=== PATIENT | female | born 1955 | race Caucasian/White ===

== ENCOUNTER → 2024-11-25 | Outpatient (CLI) | payer MEDICARE, SELFPAY ==
[2024-11-25 16:01] LABS: Absolute Lymphocyte Count 1.89 X10^3/uL (0.83-4.51); Absolute Neutrophil Count 2.5 X10^3/uL (2.0-7.7); Basophil# 0.07 X10^3/uL; Basophil% 1.4 % (0-1); Eosinophil# 0.19 X10^3/uL; Eosinophils% 3.7 % (0-5); Hematocrit 42.5 % (37-47); Hemoglobin 13.1 g/dL (12.0-15.0); Lymphocyte # 1.89 X10^3/ul (0.83-4.51); Lymphocyte % 36.7 % (19-41); Mean Corp Hgb Conc 30.8 g/dL (32-36); Mean Corpuscular Hgb 29.2 pg (27.0-32.0); Mean Corpuscular Volume 94.7 fL (81-99); Mean Platelet Vol. 9.3 fl (6.2-12.0); Monocyte# 0.54 X10^3/uL; Monocyte% 10.5 % (0-10); NRBC Flagged by Analyzer 0 % (0-5); Neutrophil # 2.45 X10^3/uL (2.7-7.7); Neutrophil % 47.5 % (47-70); Platelet Count 385 K/mm3 (150-450); RBC Distribution Width CV 12.1 % (11.6-14.6); RBC Distribution Width SD 42.4 fl (35.1-43.9); Red Blood Count 4.49 M/mm3 (4.2-5.4); White Blood Count 5.2 K/mm3 (4.4-11.0)
[2024-11-25 19:12] LABS: ALB/GLOB Ratio 1.3 RATIO (0.9-2.4); AST(SGOT) 24 U/L (<=31); Alanine Aminotransfer ALT/SGPT 17 U/L (<=34); Albumin, Serum 4.3 g/dL (3.4-4.8); Alkaline Phosphatase 101 U/L (35-104); Anion Gap 12 (5-15); BUN 10 mg/dL (4-19); Calcium,Total 9.6 mg/dL (7.6-11.0); Carbon Dioxide 25.7 mmol/L (21.0-32.0); Chloride 103 mmol/L (98-108); Cholesterol 265 mg/dL (<=200); Creatinine, Serum 0.86 mg/dL (0.70-1.20); EST Glomerular Filtration Rate 73 (>60); Globulin 3.3 g/dL (2.2-4.2); Glucose 91 mg/dL (70-99); High Density Lipoprotein 90 mg/dL; Low Density Lipoprotein Calc. 149 mg/dL; Potassium 4.1 mmol/L (3.3-5.1); Protein, Total 7.6 g/dL (5.9-8.4); Sodium Level 140 mmol/L (133-145); Total Bilirubin 0.29 mg/dL (0.00-1.30); Triglycerides 132 mg/dL; Very Low Density Lipoprotein 26 mg/dL (5-40); cholesterol:hdl ratio screen 2.95
[2024-11-25 19:14] LABS: Vitamin D,25 Hydroxy 24.3 ng/mL (30-100)
== END | disposition home or self-care (01) ==
PROVIDERS: PCP Internal Medicine; Referring Provider Internal Medicine; Visit Provider Internal Medicine
DX: E78.2 Mixed hyperlipidemia (principal); Z78.0 Asymptomatic menopausal state
CPT/HCPCS: 36415; 80053; 80061; 82306; 85025

== ENCOUNTER → 2024-12-18 | Outpatient (CLI) | payer MEDICARE, SELFPAY ==
--- NOTE | 2024-12-18 14:30 | BD_ITS ---
PROCEDURE: DEXA BONE DENSITY STUDY 12/18/2024 REASON FOR EXAM: SCREENING F, age 69 y/o . Postmenopausal. TECHNIQUE: DXA scan of the lumbar spine and l both hips, using make and model. REFERENCE LINKS: ISCD Adult Positions COMPARISON: None FINDINGS: BMD and T-SCORES Lumbar spine: 0.799 g/cm2, T-Score -2.3 L1 through L4 Left femoral neck: 0.525 g/cm2, T-Score -2.9 Femoral neck comparison data not recommended for monitoring change. Left total hip: 0.749 g/cm2, T-Score -1.6 Right femoral neck: 0.537 g/cm2, T-Score -2.8 Femoral neck comparison data not recommended for monitoring change. Right total hip: 0.736 g/cm2, T-Score -1.6 Fracture Risk Calculation: FRAX (10-year Fracture Risk) Score: FRAX scores should never be reported in a patient with osteoporosis on DEXA or for any patient that is on bone medication. The patient doesmeet the pharmacological treatment recommendations for prevention of osteoporosis BD/Dexa Bone Density Study IMPRESSION: OSTEOPOROSIS. Recommend follow-up as clinically warranted. Reading Location: [place] [id number]
--- NOTE | 2024-12-18 15:15 | BI_ITS ---
EXAM: SCRN MAMM (CAD)W/JONATHAN BILAT 12/18/2024 CLINICAL HISTORY: F, Age 69 y/o , SCREENING TECHNIQUE: Bilateral screening digital breast tomosynthesis with 2D and 3D images. Computer aided detection. COMPARISON: Prior exam(s) dated 08/20/2023. FINDINGS: TISSUE DENSITY: The breast tissue is heterogenously dense, which may obscure small masses. The mammogram demonstrates that the patient has dense breasts. Supplemental screening with whole breast ultrasound or MRI may be considered for further evaluation. Bilateral Breast Mammographic Findings: No significant masses, calcifications or other abnormalities are identified. BI/SCRN MAMM (CAD)W/JONATHAN BILAT IMPRESSION: Right Breast: BIRADS 1 NEGATIVE. Left Breast: BIRADS 1 NEGATIVE. OVERALL FINAL ASSESSMENT: BIRADS 1 NEGATIVE. RECOMMENDATION: Routine annual follow-up in 1 Year A letter with findings and recommendations will be mailed to the patient. Reading Location: [id number]
== END | disposition home or self-care (01) ==
PROVIDERS: PCP Internal Medicine; Referring Provider Internal Medicine; Visit Provider Internal Medicine
DX: Z12.31 Encounter for screening mammogram for malignant neoplasm of breast (principal); Z78.0 Asymptomatic menopausal state
CPT/HCPCS: 77063; 77067; 77080

== ENCOUNTER 2025-02-04 11:16 | Day surgery (SDC) | payer MEDICARE, SELFPAY ==
[2025-02-04] VITALS (8 sets, daily range): BP systolic 124–137; BP diastolic 72–90; PULSE 69–104; RESP 12–18; TEMP 36.1–36.8; O2SAT 97–100; BMI 25.0
--- NOTE | 2025-02-04 11:29 | PCM.PRE.AN2 ---
ASA Classification* ASA Classification ASA Classification: 2 Assessment & Plan Anesthesia* Anesthesia Assessment Anesthesia Assessment: Discussed sedation and/or anesthesia options, risks, benefits, and alternatives with patient/parents/legal guardian/POA. Questions invited. The patient/parents/legal guardian/POA seems to understand and agrees to proceed with anesthesia plan. Reviewed the physical assessment, medical history, allergy history and patient home medications list prior to surgery/procedure/anesthetic and documented any changes. Performed airway and anesthesia risk assessments. Anesthesia Type Anesthesia Type: MAC Anesthesia Focused Assessment* Airway Assessment Mouth opens: >3 cm Mallampati Score: II Focused Labs Anesthesia Preop lab: CBC WBC 5.2 K/mm3 (4.4-11.0) 11/25/24 11:11/25/24 RBC 4.49 M/mm3 (4.2-5.4) 11/25/24 11:35 11/25/24 Hgb 13.1 g/dL (12.0-15.0) 11/25/24 11:35 11/25/24 Hct 42.5 % (37-47) 11/25/24 11:35 11/25/24 Plt Count 385 K/mm3 (150-450) 11/25/24 11:35 11/25/24 CHEMISTRY Potassium 4.1 mmol/L (3.3-5.1) 11/25/24 11:35 11/25/24 Sodium 140 mmol/L (133-145) 11/25/24 11:35 11/25/24 BUN 10 mg/dL (4-19) 11/25/24 11:35 11/25/24 Creatinine 0.86 mg/dL (0.70-1.20) 11/25/24 11:35 11/25/24 Glucose 91 mg/dL (70-99) 11/25/24 11:35 11/25/24 COAG Pre-Assessment Diagnosis/Proposed Procedure Planned Operative Procedure(s): COLONOSCOPY Anesthesia History Anesthesia History - inventory control coordinator: Anesthesia History - inventory control coordinator Hx Hospitalization No 02/03/25 09:22 Any Problems With Anesthesia No 02/03/25 09:22 Cholinesterase deficiency No 02/03/25 09:22 You/Your Family Experience No 02/03/25 09:22 fever (hyperthermia) with Relationship Recent Exposure to Contagious Disease Does patient have nerve No 02/03/25 09:22 stimulator Patient instructed to have device shut off --Does patient have Pacemaker or ICD? When Was Last Pacemaker Check QUESTION #4 FULL TEXT: You/Your Family Experience fever (hyperthermia) with Anesthesia Last Oral Intake Last Oral intake: Last Oral Intake NPO since Meds taken in AM with sips of water? Meds patient instructed to take am of surgery PONV PONV - inventory control coordinator: PONV - inventory control coordinator Female Yes 02/03/25 09:22 HX of Motion Sickness No 02/03/25 09:22 HX of N/V After Surgery No 02/03/25 09:22 Non-Smoker Yes 02/03/25 09:22 Duration of Surgery greater No 02/03/25 09:22 than 60 minutes Number of Risk Factors 2 02/03/25 09:22 PONV Score Moderate Risk 02/03/25 09:22 Height & Weight Height & Weight: Anesthesia: Height & Weight Height 5 ft 1.5 in 01/06/25 11:30 Respiratory Assessment Respiratory Assessment - inventory control coordinator: Respiratory Tract Infection Hx - inventory control coordinator Hx Respiratory Tract Infection No 02/03/25 09:22 STOP Sleep Apnea STOP Sleep Apnea - inventory control coordinator: STOP Sleep Apnea - inventory control coordinator Hx Hypertension Yes 02/03/25 09:22 Hx Sleep Apnea No 02/03/25 09:22 CPAP BIPAP Do you snore loudly (louder No 02/03/25 09:22 than talking or can be heard Do you often feel tired/ No 02/03/25 09:22 fatigued/ sleepy during daytime? Has anyone observed you stop No 02/03/25 09:22 breathing during sleep? STOP Results Negative 02/03/25 09:22 QUESTION #5 FULL TEXT : Do you snore loudly (louder than talking or can be heard through closed doors)? Tobacco Use History Tobacco Use History - inventory control coordinator: Tobacco Use History - inventory control coordinator Tobacco Use Smoking Status Former smoker 02/03/25 09:22 Hx Tobacco Use No 02/03/25 09:22 Years Smoking Packs Smoked per Day Smoking Cessation Date was Yes - quit smoking within 15 02/03/25 09:22 within the last 15 years years Hx Smoking Cessation Date Hx Smoking Cessation Counseling Hematologic Medial History Hematologic Hx - inventory control coordinator: Hematologic Medical Hx - ophthalmic technologist Hx of Blood Transfusion No 02/03/25 09:22 Hx of Transfusion in last 3 No 02/03/25 09:22 Months Date of Last Transfusion (if within last 3 months) Ever experience any problems No 02/03/25 09:22 with transfusion(s)? Specify any problems Hx of Preganancy in last 3 No 02/03/25 09:22 Months Nurse Filling Out Transfusion VLEHMAN 02/03/25 09:22 & Questions: Date: 02/03/25 02/03/25 09:22 Time: :02/03/25 09:22 Patient unable to answer at this time (ie. confused, unrespo /Reproduction History /Reproductive History - inventory control coordinator: /Reproductive Hx- inventory control coordinator Hx Now No 02/03/25 09:22 Gestational Age (in weeks): EDC: Hx Hx Para Hx Section SAB Active Medications Active Medications: Current Medications Generic Name Dose Route Start Last Admin Trade Name Freq PRN Reason Stop Dose Admin Lactated Ringer's 1,000 mls @ 15 mls/hr 02/04/25 11:30 IV .Q48H ADINA PFSH Medical History Wears glasses MRSA infection Former smoker COPD (chronic obstructive pulmonary disease) History of echocardiogram Family history of colon cancer in father Home Medications ?Medication ?Instructions ?Recorded ?Last Taken ?Type multivitamin 1 tab PO QAM 11/18/24 Unknown History calcium 600 mg (as carbonate)-vit 1 tab PO BID 01/06/25 Unknown History D3 10 mcg (400 unit) chewable tablet (Calcium 600 with Vitamin D3) cetirizine 10 mg tablet (24Hour 10 mg PO DAILY PRN allergy symptoms 02/03/25 Unknown History Allergy) Allergy/AdvReac Type Severity Reaction Status Date / Time sulfamethoxazole (From Allergy Severe Chest Verified 02/03/25 09:20 Bactrim) tightness Egg Derived (eggs - derived) Allergy Unknown PT UNSURE Verified 02/03/25 09:20 OF REACTION trimethoprim (From Bactrim) Allergy Diarrhea Verified 02/03/25 09:20 Family History Aunt Cancer Female organ, unknown type Father Colon cancer, Onset Age: 26 Testicular cancer Prostate cancer Hypertension Grandfather Myocardial infarction Mother COPD (chronic obstructive pulmonary disease) CHF (congestive heart failure) Thyroid disorder Osteoporosis Grandmother CVA (cerebral vascular accident) Grandfather Cancer stomach Surgical History S/P dilation and curettage Social History adopted: No household members: spouse number of children: 3 current occupational status: retired current occupation: auto finance sales rep for [employer] pets and animals: Yes (1) pets and animals: dog(s) sexually active: Yes Smoking Status: Former smoker quit date: 09/17/15 pack-years: 20 Tobacco: How many years used: 40 alcohol intake: current alcohol intake frequency: holidays/special occasions only substance use type: marijuana caffeine: Yes (2) Type: coffee do you feel safe at home: Yes Review of Systems (Anesthesia) ROS Narrative System reviewed and no additional complaints, except as documented.
[2025-02-04] MEDS: Lactated Ringers 1,000 ML 15 ML IV (11:44)
--- NOTE | 2025-02-04 12:03 | H&P.OPEN ---
HPI - General General Date of Service: 02/04/25 HPI Narrative MOHINI SPARROW, is a 69 F who presents for screening colonoscopy. Patient never had previous colonoscopy. Patient denies any chronic abdominal pain/nausea/vomiting/reflux. Patient has bowel movements mostly every other day very occasional small amount of bleeding as she does know she has a hemorrhoid. Patient's dad was diagnosed with testicular cancer at age 26 did get colon cancer diagnosed at age 89. Otherwise no family history of colon cancer. [facility] Medical History Wears glasses MRSA infection Former smoker COPD (chronic obstructive pulmonary disease) History of echocardiogram Family history of colon cancer in father Home Medications ?Medication ?Instructions ?Recorded ?Last Taken ?Type multivitamin 1 tab PO QAM 11/18/24 Unknown History calcium 600 mg (as carbonate)-vit 1 tab PO BID 01/06/25 Unknown History D3 10 mcg (400 unit) chewable tablet (Calcium 600 with Vitamin D3) cetirizine 10 mg tablet (24Hour 10 mg PO DAILY PRN allergy symptoms 02/03/25 Unknown History Allergy) Allergy/AdvReac Type Severity Reaction Status Date / Time sulfamethoxazole (From Allergy Severe Chest Verified 02/04/25 11:37 Bactrim) tightness Egg Derived (eggs - derived) Allergy Unknown PT UNSURE Verified 02/04/25 11:37 OF REACTION trimethoprim (From Bactrim) Allergy Diarrhea Verified 02/04/25 11:37 Family History Aunt Cancer Female organ, unknown type Father Colon cancer, Onset Age: 26 Testicular cancer Prostate cancer Hypertension Grandfather Myocardial infarction Mother COPD (chronic obstructive pulmonary disease) CHF (congestive heart failure) Thyroid disorder Osteoporosis Grandmother CVA (cerebral vascular accident) Grandfather Cancer stomach Surgical History S/P dilation and curettage Social History adopted: No household members: spouse number of children: 3 current occupational status: retired 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 pets and animals: Yes (1) pets and animals: dog(s) sexually active: Yes Smoking Status: Former smoker quit date: 09/17/15 pack-years: 20 Tobacco: How many years used: 40 alcohol intake: current alcohol intake frequency: holidays/special occasions only substance use type: marijuana caffeine: Yes (2) Type: coffee do you feel safe at home: Yes Past Medical/Surgical History Planned Operation Planned Operative Procedure(s): COLONOSCOPY Respiratory Do You Snore Loudly (louder than talking or can be heard): No Do You Often Feel Tired/ Fatigued/ Sleepy Dring Daytime?: No Has Anyone Observed You Stop Breathing During Sleep?: No Result (for STOP score): Negative Smoking Status: Former smoker Reproduction : No Miscellaneous Recent Exposure to Contagious Disease: No Allergies sulfamethoxazole (From Bactrim) Allergy (Severe, Verified 02/04/25 11:37) Chest tightness Egg Derived (eggs - derived) Allergy (Unknown, Verified 02/04/25 11:37) PT UNSURE OF REACTION trimethoprim (From Bactrim) Allergy (Verified 02/04/25 11:37) Diarrhea Discharge Is Pt Admitted From a [facility], or a [facility]: No Who Could Help: After D/C, Where Do you Plan to Go: Return Home Vital Signs Vital Signs Vital Signs: 02/04/25 11:37 02/04/25 11:37 Temperature 97.1 F L Temperature Source Temporal Pulse Rate 104 H Respiratory Rate 16 Respiratory Pattern Normal Blood Pressure 137/90 H Blood Pressure Mean 105 Blood Pressure Source Monitor Blood Pressure Position Sitting Blood Pressure Location Left Arm Pulse Ox 97 Oxygen Delivery Method Room Air Weight Weight: 132 lb 4.438 oz Body Mass Index (BMI) 25.0 Physical Exam Const alert, oriented x3 and no apparent distress HEENT normocephalic and head/scalp atraumatic Resp normal respiratory effort Cardio regular rate GI soft to palpation and non-tender; Negative for non-distended Palpation: Negative for guarding Extremity no clubbing, cyanosis or edema Skin no rashes or lesions noted Neuro CN's II-XII intact bilaterally Psych mental status grossly normal Assessment & Plan Assessment/Plan (1) Encounter for screening for malignant neoplasm of colon: Surgery Risks - Colonoscopy I discussed with the patient the risks of the procedure: Yes Risks Include but are not Limited To: Risks include but are not limited to: Bleeding, perforation requiring further surgery, inability to complete colonoscopy requiring barium enema.
--- NOTE | 2025-02-04 12:57 | PCM.POST.ANE ---
Anesthesia: Postop Eval I Current Vital Signs Temperature: 98.2 F Pulse Rate: 80 Blood Pressure: 124/82 Respiratory Rate: 12 Pulse Ox: 98 Oxygen Delivery Method: Room Air Assessment Airway patent: Yes Spontaneous unlabored respirations: Yes Mental status: Awake nausea: No Vomiting: No Anesthesia Complication: No Fluid Hydration Crystalloid volume administer (ml): 200 Total IV fluid infused: 200 Progress Note Anesthesia document: Postop Eval 1 completed: Yes
--- NOTE | 2025-02-04 13:13 | OP.COLON_ITS ---
Patient Name: Sabine Shore Procedure Date: 02/04/2025 12:44 PM Date of : 1955 Age: 69 Procedure: Colonoscopy Indications: Screening for colorectal malignant neoplasm Providers: Valentine Matthews MD Referring MD: Destiny Cash Md Medicines: Monitored Anesthesia Care Patient Profile: This is a 69 year old female. Last Colonoscopy: none. The patient's first colonoscopy is today. Complications: No immediate complications. Procedure: Pre-Anesthesia Assessment: - Prior to the procedure, a History and Physical was performed, and patient medications and allergies were reviewed. The patient's tolerance of previous anesthesia was also reviewed. The risks and benefits of the procedure and the sedation options and risks were discussed with the patient. All questions were answered, and informed consent was obtained. Prior Anticoagulants: The patient has taken no anticoagulant or antiplatelet agents. ASA Grade Assessment: Per anesthesia. After reviewing the risks and benefits, the patient was deemed in satisfactory condition to undergo the procedure. After I obtained informed consent, the scope was passed under direct vision. Throughout the procedure, the patient's blood pressure, pulse, and oxygen saturations were monitored continuously. The colonoscope was introduced through the anus and advanced to the cecum, identified by the appendiceal orifice, ileocecal valve and palpation. The colonoscopy was performed without difficulty. The patient tolerated the procedure well. The quality of the bowel preparation was good. Scope In: 12:50:49 PM Scope Withdrawal Time 0 hours 6 minutes 43 seconds Scope Out: 1:08:53 PM Total Procedure Duration Time 0 hours 18 minutes 4 seconds Findings: The perianal and digital rectal examinations were normal. Multiple small-mouthed diverticula were found in the sigmoid colon. The exam was otherwise without abnormality on direct and retroflexion views. Impression: - Diverticulosis in the sigmoid colon. - The examination was otherwise normal on direct and retroflexion views. - No specimens collected. Recommendation: - Discharge patient to home. - High fiber diet. - Continue present medications. - Repeat colonoscopy in 10 years for screening purposes. Procedure Code(s): --- Professional --- G0121, PT, Colorectal cancer screening; colonoscopy on individual not meeting criteria for high risk Diagnosis Code(s): --- Professional --- Z12.11, Encounter for screening for malignant neoplasm of colon K57.30, Diverticulosis of large intestine without perforation or abscess without bleeding CPT copyright 2021 [employer]. All rights reserved. The codes documented in this report are preliminary and upon flat sheet maker review may be revised to meet current compliance requirements. MD Valentine Bansal MD 02/04/2025 1:13:14 PM This report has been signed electronically. Number of Addenda: 0 Note Initiated On: 02/04/2025 12:44 PM
--- NOTE | 2025-02-04 13:13 | OP.CCLET_ITS ---
02/04/2025 Destiny Cash Md Re : Colonoscopy procedure for Sabine Shore Dear Shailesh This procedure was performed on Tuesday, February 04, 2025. My impressions and recommendations are as follows: Impressions : - Diverticulosis in the sigmoid colon. - The examination was otherwise normal on direct and retroflexion views. - No specimens collected. Recommendations : - Discharge patient to home. - High fiber diet. - Continue present medications. - Repeat colonoscopy in 10 years for screening purposes. My findings are described in the full procedure note, which is enclosed. If I can be of further assistance, please feel free to contact me at Doctor phone number(s): , Work: . Sincerely, MD Valentine Bansal MD 02/04/2025 1:13:14 PM This report has been signed electronically.
--- NOTE | 2025-02-04 13:20 | POSTOPAN2_ITS ---
Anesthesia Postop Eval I Sum Postop Eval Completion status Anesthesia document: Postop Eval 1 completed: Yes Anesthesia Postop Eval I Summary Anesthesia Postop Eval I Summary: Anesthesia Postop Eval I: Assessment Summary Airway patent Yes 02/04/25 12:58 BAND INSTRUMENT [email or web address] Spontaneous unlabored Yes 02/04/25 12:58 BAND INSTRUMENT [email or web address] respirations Mental status Awake 02/04/25 12:58 BAND INSTRUMENT [email or web address] nausea No 02/04/25 12:58 BAND INSTRUMENT REPAIRER.[email or web address] Vomiting No 02/04/25 12:58 BAND INSTRUMENT REPAIRER.HBARR Anesthesia Postop Eval I: Fluid Summary Crystalloid volume administer 200 02/04/25 12:58 BAND INSTRUMENT [email or web address].HBARR (ml) Colloids volume administered ( ml) Blood Product volume administered (ml) Total IV fluid infused 200 02/04/25 12:58 BAND INSTRUMENT REPAIRER.HBARR Anesthesia Postop Eval I: Summary Notes Anesthesia Complication No 02/04/25 12:58 BAND INSTRUMENT [email or web address].HBARR Anesthesia Complication Comment: Post-operative progress note Anesthesia: Postop Eval II Evaluation Mental status: Awake Pain Level: 0 nausea: No Vomiting: No
--- NOTE | 2025-02-04 13:20 | PCM.POSTANE2 ---
Anesthesia Postop Eval I Sum Postop Eval Completion status Anesthesia document: Postop Eval 1 completed: Yes Anesthesia Postop Eval I Summary Anesthesia Postop Eval I Summary: Anesthesia Postop Eval I: Assessment Summary Airway patent Yes 02/04/25 12:58 BENEFITS [email or web address] Spontaneous unlabored Yes 02/04/25 12:58 BENEFITS CLERK.HBARR respirations Mental status Awake 02/04/25 12:58 BENEFITS [email or web address].HBARR nausea No 02/04/25 12:58 BENEFITS CLERK.HBARR Vomiting No 02/04/25 12:58 BENEFITS CLERK.HBARR Anesthesia Postop Eval I: Fluid Summary Crystalloid volume administer 200 02/04/25 12:58 BENEFITS CLERK.HBARR (ml) Colloids volume administered ( ml) Blood Product volume administered (ml) Total IV fluid infused 200 02/04/25 12:58 BENEFITS CLERK.HBARR Anesthesia Postop Eval I: Summary Notes Anesthesia Complication No 02/04/25 12:58 BENEFITS CLERK.HBARR Anesthesia Complication Comment: Post-operative progress note Anesthesia: Postop Eval II Evaluation Mental status: Awake Pain Level: 0 nausea: No Vomiting: No
== END 2025-02-04 13:43 | disposition home or self-care (01) ==
LOC: EN 11:16 → AC 11:24
PROVIDERS: PCP Internal Medicine; Referring Provider Internal Medicine; Visit Provider Surgery
PROC: 0DJD8ZZ Inspection of Lower Intestinal Tract, Via Natural or Artificial Opening Endoscopic (ICD-10-PCS; CPT 45378; principal; 2025-02-04 12:25)
DX: Z12.11 Encounter for screening for malignant neoplasm of colon (principal); J44.9 Chronic obstructive pulmonary disease, unspecified; Z87.891 Personal history of nicotine dependence; K57.30 Diverticulosis of large intestine without perforation or abscess without bleeding; Z80.0 Family history of malignant neoplasm of digestive organs
CPT/HCPCS: 45378

== ENCOUNTER → 2025-06-29 | Outpatient (CLI) | payer MEDICARE, SELFPAY | END | disposition home or self-care (01) | PROVIDERS: PCP Internal Medicine; Referring Provider Internal Medicine; Visit Provider Internal Medicine | DX: R06.89 Other abnormalities of breathing (principal) | CPT/HCPCS: 94060; 94726; 94729 ==